=== PATIENT | male | born 1965 | race Caucasian/White ===

== ENCOUNTER 2017-08-03 10:39 | Emergency (ER) | payer MEDICAID ==
[~2017-08-03] VITALS: Ht 182.9 cm; Wt 98.9 kg
[2017-08-03] MEDS ORDERED: METFORMIN HCL1000 M1 ORAL (10:48)
[2017-08-03] MEDS ORDERED: BUSPAR10 MG ORAL (10:48)
[2017-08-03] MEDS ORDERED: JANUVIA25 MG ORAL (10:48)
[2017-08-03] MEDS ORDERED: ATORVASTATIN CA20 MG ORAL (10:48)
[2017-08-03] MEDS ORDERED: LAMICTAL25 MG ORAL (10:48)
[2017-08-03] MEDS ORDERED: CELEXA20 MG ORAL (10:48)
[2017-08-03 10:51] VITALS: BP 148/76
[2017-08-03] MEDS ORDERED: AUGMENTIN 875-1 EAC1 ORAL (11:11)
[2017-08-03] MEDS ORDERED: IBUPROFEN600 MG ORAL (11:11)
--- NOTE | 2017-08-22 12:47 | Emergency Room Report ---
History of Present Illness General Chief Complaint: Earache Source: Patient Present Illness HPI 51 yo m with R ear deafness since p/w pain swelling around L cheek near ear x 1 day. +slight redness/swelling to area, also pain inside L mouth. no recent dentalwork. no trauma. no fever or chills. pt able to hear out of l ear. no discharge. Patient History Past Medical History: see triage record Past Surgical History: none Pertinent Family History: none Reviewed Nursing Documentation: PMH: Agreed, PSxH: Agreed Nursing Documentation-PMH Hx Diabetes: Yes History Of Psychiatric Problem: Yes - Depression Review of Systems All Other Systems: negative except mentioned in HPI Physical Exam Vital Signs Date Time Temp Pulse Resp B/P (MAP) Pulse Ox O2 Delivery O2 Flow Rate FiO2 08/03/17 10:42 97.7 56 16 151/73 99 Room Air Sp02 EP Interpretation: reviewed, normal General Appearance: normal inspection, well appearing, no apparent distress, alert, GCS 15, non-toxic Head: normocephalic, atraumatic Eyes: bilateral eye normal inspection, bilateral eye PERRL, bilateral eye EOMI ENT: normal pharynx, normal voice, moist mucus membranes, other - b/l TM without effusion or erythema. intraoral tenderness L upper molar area, no poor dentitition, no dental abscess seen or palpated, mild erythema/redness L cheek TTP. no mastoid tenderness. Neck: normal inspection, full range of motion, supple Respiratory: normal inspection, lungs clear, normal breath sounds, no respiratory distress, no retraction, no wheezing, speaking full sentences, chest symmetrical Cardiovascular #1: normal inspection, regular rate, rhythm, no edema, normal capillary refill Cardiovascular #2: 2+ radial (R), 2+ radial (L) Gastrointestinal: normal inspection, non tender, soft, non-distended, no guarding Genitourinary: no CVA tenderness Musculoskeletal: normal inspection, back normal, normal range of motion, non- tender Neurologic: normal inspection, alert, oriented x3, responsive, motor strength/ tone normal, sensory intact, normal gait, speech normal Psychiatric: normal inspection, judgement/insight normal, memory normal Skin: normal inspection, normal color, no rash, warm/dry, well hydrated, normal turgor Medical Decision Making Diagnostic Impression: Primary Impression: Cellulitis of intraoral region ER Course 51 yo M with L ear pain x 1 day DDX: otitis media, otitis externa, cellulitis likely intraoral cellulitis extending to face, mild Plan pain control, DC with abx Dispo: Pt DCed to home with close pMD fu in 48 hours for wound check. pt instructed to take abx and motrin. strict return precautions discussed such as rapid spread of rash, high fever or chills Last Vital Signs Date Time Temp Pulse Resp B/P (MAP) Pulse Ox O2 Delivery O2 Flow Rate FiO2 08/03/17 11:20 97.6 59 15 148/76 99 Room Air Disposition: HOME, SELF-CARE Condition: Stable Scripts Ibuprofen* (MOTRIN*) 600 Mg Tablet 600 MG ORAL Q8H Y for For Pain, #30 TAB 0 Refills Prov: Lulú Ramos M.D. 08/03/17 Amoxicillin/Potassium Clav 875-125* (AUGMENTIN 875-125 TABLET*) 1 Each Tablet 1 TAB ORAL TWICE A DAY for 7 Days, #14 TAB 0 Refills Prov: Lulú Ramos M.D. 08/03/17 Referrals: NOT CHOSEN [facility]/,REFERRING (PCP) Patient Instructions: Cellulitis, [id number] Additional Instructions: Please followup with your doctor in 48 hours for recheck Lulú Ramos M.D. Aug 22, 2017 12:47
== END 2017-08-03 11:21 | disposition home or self-care (01) ==
LOC: EMR 11:10
DX: K12.2 Cellulitis and abscess of mouth (principal); H91.91 Unspecified hearing loss, right ear; E11.9 Type 2 diabetes mellitus without complications; F32.9 Major depressive disorder, single episode, unspecified
CPT/HCPCS: 99284

== ENCOUNTER 2017-11-16 21:46 | Emergency (ER) | payer MEDICAID ==
[~2017-11-16] VITALS: Ht 182.9 cm; Wt 117.9 kg
[~2017-11-16 21:46] MED LIST: ATORVASTATIN CA20 MG ORAL; AUGMENTIN 875-1 EAC1 ORAL; BUSPAR10 MG ORAL; CELEXA20 MG ORAL; IBUPROFEN600 MG ORAL; JANUVIA25 MG ORAL; LAMICTAL25 MG ORAL; METFORMIN HCL1000 M1 ORAL
[2017-11-16 21:55] VITALS: BP 148/84
[2017-11-16] MEDS ORDERED: PROMETHAZINE-C118 M1 ORAL (22:00)
[2017-11-16] MEDS ORDERED: AMOXICILLIN500 MG ORAL (22:00)
[2017-11-16 22:10] VITALS: BP 148/84
--- NOTE | 2017-11-16 23:31 | Emergency Room Report ---
History of Present Illness General Chief Complaint: Flu Like Symptoms Source: Patient Present Illness HPI 51-year-old male presents ED complaining of cough x2 days. Cough is productive with yellow sputum. Denies fevers or chills. Denies chest pain. Denies shortness of breath. Patient states he does smoke. Denies sick contacts or recent travel. No other aggravating relieving factors. Denies any other associated symptoms Allergies: Coded Allergies: No Known Allergies (Unverified , 11/16/17) Patient History Past Medical History: DM, HTN Past Surgical History: none Pertinent Family History: none Social History: Reports: smoking, Denies: alcohol use, drug use Immunizations: UTD Reviewed Nursing Documentation: PMH: Agreed, PSxH: Agreed Nursing Documentation-PMH Past Medical History: No History, Except For Hx Hypertension: Yes Hx Diabetes: Yes - dm2 Review of Systems All Other Systems: negative except mentioned in HPI Physical Exam Vital Signs Date Time Temp Pulse Resp B/P (MAP) Pulse Ox O2 Delivery O2 Flow Rate FiO2 11/16/17 21:47 98.2 79 16 148/84 97 Room Air Sp02 EP Interpretation: reviewed, normal General Appearance: no apparent distress, alert, GCS 15, non-toxic Head: normocephalic, atraumatic Eyes: bilateral eye normal inspection, bilateral eye PERRL ENT: hearing grossly normal, normal pharynx, no angioedema, normal voice Neck: full range of motion, supple/symm/no masses Respiratory: chest non-tender, normal breath sounds, crackles, speaking full sentences Cardiovascular #1: regular rate, rhythm, no edema Cardiovascular #2: 2+ carotid (R), 2+ carotid (L), 2+ radial (R), 2+ radial (L) , 2+ dorsalis pedis (R), 2+ dorsalis pedis (L) Gastrointestinal: normal bowel sounds, non tender, soft, non-distended, no guarding, no rebound Rectal: deferred Genitourinary: normal inspection, no CVA tenderness Musculoskeletal: back normal, gait/station normal, normal range of motion, non- tender Neurologic: alert, oriented x3, responsive, motor strength/tone normal, sensory intact, speech normal Psychiatric: judgement/insight normal, memory normal, mood/affect normal, no suicidal/homicidal ideation Reflexes: 3+ bicep (R), 3+ bicep (L), 3+ tricep (R), 3+ tricep (L), 3+ knee (R) , 3+ knee (L) Skin: normal color, no rash, warm/dry, well hydrated Lymphatic: no adenopathy Medical Decision Making Diagnostic Impression: Primary Impression: Atypical pneumonia ER Course Hospital Course 51-year-old male presents ED with cough x2 days Differential diagnoses include: URI, pharyngitis, otitis media, asthma Clinical course Patient placed on stretcher. After initial history, physical exam reveals a middle aged male in no acute distress. Bilateral TM unremarkable. No pharyngeal erythema. No tonsillar exudates. No lymphadenopathy. crackles on lung exam. abdomen soft. vital stable. patient appears nontoxic. given smoking history we will treat as atpyical pneumonia Diagnosis - atypical pneumonia Stable and discharged home with Rx Amoxicillin, promethazine/codeine. Instructed to followup with PMD. Return to ED if symptoms recur or worsen Last Vital Signs Date Time Temp Pulse Resp B/P (MAP) Pulse Ox O2 Delivery O2 Flow Rate FiO2 11/16/17 22:10 79 148/84 11/16/17 21:55 98.2 16 97 Room Air Status: improved Disposition: HOME, SELF-CARE Condition: Stable Scripts Codeine/Promethazine Hcl* (PROMETHAZINE-CODEINE SYRUP*) 118 Ml Syrup 5 ML ORAL Q6H Y for For Cough, #118 ML 0 Refills Prov: JONO MEREDITH M.D. 11/16/17 Amoxicillin* (AMOXIL*) 500 Mg Capsule 500 MG ORAL THREE TIMES A DAY, #21 CAP Prov: JONO MEREDITH M.D. 11/16/17 Referrals: NOT CHOSEN [facility]/,REFERRING (PCP) Patient Instructions: Community-Acquired Pneumonia, Adult, [id number] JONO MEREDITH M.D. Nov 16, 2017 23:31
== END 2017-11-16 22:10 | disposition home or self-care (01) ==
LOC: EMR 21:55
DX: J18.9 Pneumonia, unspecified organism (principal); E11.9 Type 2 diabetes mellitus without complications
CPT/HCPCS: 99283

== ENCOUNTER 2017-12-21 15:49 | Emergency (ER) | payer MEDICAID ==
[~2017-12-21] VITALS: Ht 182.9 cm; Wt 98.9 kg
[~2017-12-21 15:49] MED LIST changes: +AMOXICILLIN500 MG ORAL; +PROMETHAZINE-C118 M1 ORAL
[2017-12-21 16:44] VITALS: BP 147/7
[2017-12-21] MEDS ORDERED: KEFLEX500 MG ORAL (16:44)
[2017-12-21] MEDS ORDERED: CLOTRIMAZOLE15 GM TOPIC (16:44)
[2017-12-21 16:48] VITALS: BP 147/7
--- NOTE | 2017-12-22 21:24 | Emergency Room Report ---
History of Present Illness General Chief Complaint: General Complaint Source: Patient Present Illness HPI 51-year-old male presents ED complaining of pain to the left foot x4 days. States there is an infection to his foot. Notes some throbbing pain, 5/10, nonradiating. Denies fevers or chills. Denies any other associated symptoms. No other aggravating relieving factors. Denies any other associated symptoms Allergies: Coded Allergies: No Known Allergies (Unverified , 11/16/17) Patient History Past Medical History: DM Past Surgical History: none Pertinent Family History: none Social History: Denies: smoking, alcohol use, drug use Immunizations: UTD Reviewed Nursing Documentation: PMH: Agreed, PSxH: Agreed Nursing Documentation-PMH Hx Hypertension: Yes Hx Diabetes: Yes - dm2 Review of Systems All Other Systems: negative except mentioned in HPI Physical Exam Vital Signs Date Time Temp Pulse Resp B/P (MAP) Pulse Ox O2 Delivery O2 Flow Rate FiO2 12/21/17 16:41 98.1 78 16 147/7 99 Room Air Sp02 EP Interpretation: reviewed, normal General Appearance: no apparent distress, alert, GCS 15, non-toxic Head: normocephalic Eyes: bilateral eye normal inspection, bilateral eye PERRL ENT: normal ENT inspection Neck: normal inspection Respiratory: normal inspection Cardiovascular #1: normal inspection Gastrointestinal: normal inspection Rectal: deferred Genitourinary: no CVA tenderness Musculoskeletal: normal inspection Neurologic: alert, oriented x3, responsive, motor strength/tone normal, sensory intact, speech normal Psychiatric: normal inspection Skin: other - macerated skin between toes 4th and 5th digits. erythema to dorsum of foot near 4th and 5th toes Lymphatic: normal inspection Medical Decision Making Diagnostic Impression: Primary Impression: Fungal infection of foot Qualified Codes: B35.3 - Tinea pedis ER Course Hospital Course 51-year-old male presents to ED with rash to to foot Differential diagnoses include: Cellulitis, dermatitis, insect bite, abscess Clinical course Patient placed on stretcher. After initial history, physical exam reveals a middle aged male in no acute distress. On exam there is macerated skin between the fourth and fifth digits of the left foot. In close proximity there is erythema to the dorsum of the right foot. Consistent with a fungal infection with bacterial superinfection Discussed findings with the patient. We will prescribe topical fungal medications as well as antibiotics Diagnosis - fungal infection stable and discharged to home with prescription for clotrimazole, keflex. Instructed to followup with PMD. Instructed return to ED if symptoms recur or worsen Last Vital Signs Date Time Temp Pulse Resp B/P (MAP) Pulse Ox O2 Delivery O2 Flow Rate FiO2 12/21/17 16:48 98.1 16 147/7 99 Room Air 12/21/17 16:41 78 Status: improved Disposition: HOME, SELF-CARE Condition: Stable Scripts Clotrimazole* (LOTRIMIN*) 15 Gm Cream..g. 1 APPLIC TOPIC TWICE A DAY, #15 GM Prov: JONO MEREDITH M.D. 12/21/17 Cephalexin* (KEFLEX*) 500 Mg Capsule 500 MG ORAL Q6H, #28 CAP 0 Refills Prov: JONO MEREDITH M.D. 12/21/17 Referrals: NOT CHOSEN [facility]/,REFERRING (PCP) Patient Instructions: Athlete's Foot, [id number] JONO MEREDITH M.D. Dec 22, 2017 21:24
== END 2017-12-21 17:06 | disposition home or self-care (01) ==
LOC: EMR 16:50
DX: B35.3 Tinea pedis (principal); E11.9 Type 2 diabetes mellitus without complications; I10 Essential (primary) hypertension
CPT/HCPCS: 99283

== ENCOUNTER 2019-08-19 17:31 | Emergency (ER) | payer MEDICAID ==
[~2019-08-19] VITALS: Ht 182.9 cm; Wt 97.5 kg
[~2019-08-19 17:31] MED LIST changes: +CLOTRIMAZOLE15 GM TOPIC; +KEFLEX500 MG ORAL
--- NOTE | 2019-08-19 18:00 | NUR ---
ED Nurse Note: Pt is AAOx4, VSS, with no acute distress. Pt came in for left big toe pain x more than a week. Pt was seen by his PCP an hour ago and referred pt to go to ED for further eval.
--- NOTE | 2019-08-19 18:32 | Emergency Room Report ---
History of Present Illness General Chief Complaint: Lower Extremity Injury Source: Patient Present Illness HPI 53 YO male presents to the ED c/o 02/14 0 in severity pain, tenderness and ST fb in the left Great toe x 1 week. Pt. denies erythema, fevers, chills, or notable trauma. Pt. reports pain increased with palpation or ambulation. Pt. reports tried to see his PCP today for symptoms but was referred to ED for eval. Pt. reports hx of DM. Denies bleeding. Pt. denies taking blood thinning medications. No other aggravating or relieving factors at this time. Allergies: Coded Allergies: No Known Allergies (Unverified , 11/16/17) Patient History Past Medical History: see triage record Past Surgical History: none Pertinent Family History: none Immunizations: UTD Reviewed Nursing Documentation: PMH: Agreed; PSxH: Agreed Nursing Documentation-PMH Past Medical History: No History, Except For Hx Hypertension: Yes Hx Diabetes: Yes - dm2 Review of Systems All Other Systems: negative except mentioned in HPI Physical Exam Vital Signs Date Time Temp Pulse Resp B/P (MAP) Pulse Ox O2 Delivery O2 Flow Rate FiO2 08/19/19 17:48 62 20 123/77 (92) 95 Room Air Sp02 EP Interpretation: reviewed, normal General Appearance: no apparent distress, alert, GCS 15, non-toxic Head: normocephalic, atraumatic Eyes: bilateral eye normal inspection, bilateral eye PERRL ENT: hearing grossly normal, normal voice Neck: full range of motion Respiratory: lungs clear, normal breath sounds, speaking full sentences Cardiovascular #1: regular rate, rhythm, no edema, normal capillary refill Musculoskeletal: back normal, gait/station normal, normal range of motion, non- tender Neurologic: alert, oriented x3, responsive, motor strength/tone normal, sensory intact, normal gait, speech normal, grossly normal Psychiatric: judgement/insight normal Skin: other - visible superficial FB in the ST of Left great toe. Notable callous about the fb. No erythema or warmth, no pus. Lymphatic: no adenopathy Procedures Additional Procedure Procedure Narrative Verbal consent was obtained by pt. to attempt manual removal of ST FB from the plantar aspect of the Left great toe. Area was sterilized with alcohol prep pad. Gentle pressure manually applied about the ST containing the FB without anesthesia. The FB successfully backed out of the calloused ST. No visible retained particles. No bleeding, pus or evidence of deeper infection. Pt. tolerated well and there were no complications. Medical Decision Making PA Attestation Dr. Munson is my supervising Physician whom patient management has been discussed with. Diagnostic Impression: Primary Impression: Soft tissues foreign body ER Course 53 YO male presents to the ED c/o 02/14 0 in severity pain, tenderness and ST fb in the left Great toe x 1 week. Pt. denies erythema, fevers, chills, or notable trauma. Pt. reports pain increased with palpation or ambulation. Pt. reports tried to see his PCP today for symptoms but was referred to ED for eval. Pt. reports hx of DM. Denies bleeding. Pt. denies taking blood thinning medications. No other aggravating or relieving factors at this time. Ddx considered but are not limited to cellulitis, retained FB, cyst/abscess, puncture wound, laceration Vital signs: are WNL, pt. is afebrile H&PE are most consistent with visible superficial FB in the ST of Left great toe. Notable callous about the fb. ORDERS: none required at this time, the diagnosis is clinical - - X-ray suggested, pt. declines. ED INTERVENTIONS: - ST removal manually with out complications. no bleeding. FB did not penetrate through all layers of the dermis. -I do not identify an emergent condition at this time. With current presentation , pt. is stable for close outpatient follow up and conservative treatment. D/ w pt. to return promptly to ED with worsening or new symptoms.- Pt. verbalizes' understanding and agreement with proposed treatment plan. DISCHARGE: At this time pt. is stable for d/c to home. Will provide printed patient care instructions, and any necessary prescriptions. Care plan and follow up instructions have been discussed with the patient prior to discharge. Last Vital Signs Date Time Temp Pulse Resp B/P (MAP) Pulse Ox O2 Delivery O2 Flow Rate FiO2 08/19/19 17:48 62 20 123/77 (92) 95 Room Air Disposition: HOME, SELF-CARE Condition: Stable Scripts Bacitracin/Polymyxin B Sulfate (BACITRACIN-POLYMYXIN OINTMENT) 28.35 Gm Oint...g. 1 APPLIC TP BID, #28.3 GM Prov: Laurie Churchill 08/19/19 Patient Instructions: Wound Check Additional Instructions: Take medications as directed. Follow up with a Primary Care Provider for PODIATRY REFERRAL in 3-5 days, even if your symptoms have resolved. --Please review list of primary care clinics, if you do not already have a primary care provider Return sooner to ED if new symptoms occur, or current symptoms become worse. - Please note that this Emergency Department Report was dictated using [employer] technology software, occasionally this can lead to erroneous entry secondary to interpretation by the dictation equipment. Laurie Churchill Aug 19, 2019 18:32
[2019-08-19] MEDS ORDERED: BACITRACIN-P28.35 GM TP (18:33)
[2019-08-19 18:38] VITALS: BP 123/77
--- NOTE | 2019-08-19 18:38 | NUR ---
ER DISCHARGE NOTE: Patient is cleared to be discharged per ERMD, pt is aox4, on room air, with stable vital signs. pt was given dc and prescription instructions, pt was able to verbalize understanding, pt id band and iv site removed without complications. pt is able to ambulate with steady gait. pt took all belongings. Pt symptoms improved.
== END 2019-08-19 18:38 | disposition home or self-care (01) ==
LOC: EMR 18:30
DX: S90.452A Superficial foreign body, left great toe, initial encounter (principal); E11.9 Type 2 diabetes mellitus without complications; I10 Essential (primary) hypertension; X58.XXXA Exposure to other specified factors, initial encounter; Y92.9 Unspecified place or not applicable
CPT/HCPCS: 99282